=== PATIENT | male | born 1995 ===

== ENCOUNTER 2018-04-20 23:16 | Emergency (ER) | payer SELFPAY ==
--- NOTE | 2018-04-20 23:22 | EDM.PDOC ---
ED HPI GENERAL MEDICAL PROBLEM - General Chief Complaint: Upper Extremity Injury/Pain Stated Complaint: BIG CUT ON HAND Time Seen by Provider: 04/20/18 23:22 Source of Information: Reports: Patient History Limitations: Reports: No Limitations - History of Present Illness INITIAL COMMENTS - FREE TEXT/NARRATIVE: HISTORY AND PHYSICAL: History of present illness: 23-year-old male presenting to emergency department with chief complaint of right hand pain after trauma. Patient states that approximately 10 minutes ago he punched a wall and then proceeded to punch a TV. He did break the TV screen and had significant pain and damage to his right hand. There is a laceration and he believes bone sticking out of the ulnar dorsal aspect of his right hand. Currently having 0 pain. States that he has not lost any sensation but has not tried to bend the finger secondary to bone protrusion. On exam there is a laceration at the medial fifth metacarpal on the dorsal aspect of the hand with visible bone protrusion. Laceration is approximately 1.5 x 0.2cm horizontal. Review of systems: As per history of present illness and below otherwise all systems reviewed and negative. Past medical history: As per history of present illness and as reviewed below otherwise noncontributory. Surgical history: As per history of present illness and as reviewed below otherwise noncontributory. Social history: No reported history of drug or alcohol abuse. Family history: As per history of present illness and as reviewed below otherwise noncontributory. Physical exam: HEENT: Atraumatic, normocephalic, pupils reactive, negative for conjunctival pallor or scleral icterus, mucous membranes moist, throat clear, neck supple, nontender, trachea midline. Lungs: Clear to auscultation, breath sounds equal bilaterally, chest nontender. Heart: S1S2, regular, negative for clicks, rubs, or JVD. Abdomen: Soft, nondistended, nontender. Negative for masses or hepatosplenomegaly. Negative for costovertebral tenderness. Pelvis: Stable nontender. Genitourinary: Deferred. Rectal: Deferred. Extremities: Atraumatic, negative for cords or calf pain. Neurovascular unremarkable. Neuro: Awake, alert, oriented. Cranial nerves II through XII unremarkable. Cerebellum unremarkable. Motor and sensory unremarkable throughout. Exam nonfocal. Diagnostics: Right hand x-ray Therapeutics: DTaP, 1% lidocaine, Ethilon suture Impression: Right hand pain Open fracture Plan: Using approximately 3 mL of lidocaine area of interest was anesthetized successfully. After wound exploration and cleaning I was able to close the 1.5 x 0.2 cm laceration using 2 vertical mattress sutures. Patient tolerated procedure well. There were no complications. Patient also received a DTaP as he did not remember his last tetanus. Patient was discharged in good condition with instructions to keep area clean and dry. He should return to emergency department in 7-10 days for suture removal. He'll also follow-up with his primary care provider if he wishes. Definitive disposition and diagnosis as appropriate pending reevaluation and review of above. - Related Data Allergies Allergy/AdvReac Type Severity Reaction Status Date / Time No Known Allergies Allergy Verified 04/20/18 23:22 Home Meds: Home Meds . [No Known Home Meds] 04/20/18 [History] Review of Systems - Review of Systems Review Of Systems: ROS reveals no pertinent complaints other than HPI. ED EXAM, GENERAL - Physical Exam Exam: See Below Course - Vital Signs Last Recorded V/S: Last Vital Signs Temp Pulse 72 04/20/18 23:27 Resp 14 04/20/18 23:27 BP 121/58 L 04/20/18 23:27 Pulse Ox 98 04/20/18 23:27 - Orders/Labs/Meds Orders: Active Orders 24 hr Category Date Time Status Vaccines to be Administered [RC] PER UNIT ROUTINE Care 04/20/18 23:24 Active Hand Comp Min 3V Rt [CR] Stat Exams 04/20/18 23:21 Taken Meds: Medications Discontinued Medications Generic Name Dose Route Start Last Admin Trade Name Yahaira PRN Reason Stop Dose Admin Diphtheria/Tetanus/Acell Pertussis 0.5 ml 04/20/18 23:24 04/20/18 23:32 Adacel IM 04/20/18 23:25 0.5 ml .ONCE ONE Administration Lidocaine HCl 5 ml 04/20/18 23:24 04/20/18 23:33 Xylocaine-Mpf 1% INJECT 04/20/18 23:25 5 ml ONETIME ONE Administration Departure - Departure Time of Disposition: 00:13 Disposition: Home, Self-Care 01 Condition: Good Clinical Impression: Laceration of hand Qualifiers: Encounter type: initial encounter Foreign body presence: without foreign body Laterality: right Qualified Code(s): S61.411A - Laceration without foreign body of right hand, initial encounter - Discharge Information Forms: ED Department Discharge Additional Instructions: My general discharge The following information is given to patients seen in the emergency department who are being discharged to home. This information is to outline your options for follow-up care. We provide all patients seen in our emergency department with a follow-up referral. The need for follow-up, as well as the timing and circumstances, are variable depending upon the specifics of your emergency department visit. If you don't have a primary care physician on staff, we will provide you with a referral. We always advise you to contact your personal physician following an emergency department visit to inform them of the circumstance of the visit and for follow-up with them and/or the need for any referrals to a consulting specialist. The emergency department will also refer you to a specialist when appropriate. This referral assures that you have the opportunity for follow-up care with a specialist. All of these measure are taken in an effort to provide you with optimal care, which includes your follow-up. Under all circumstances we always encourage you to contact your private physician who remains a resource for coordinating your care. When calling for follow-up care, please make the office aware that this follow-up is from your recent emergency room visit. If for any reason you are refused follow-up, please contact the [facility] Emergency Department at and asked to speak to the emergency department charge nurse. [facility] [address] [place] [phone] May call number above to follow-up with a primary care provider. Be sure to tell them you were seen in the emergency department and they wish for you to be seen as soon as possible. Keep area clean and dry. Watch for signs of infection including but not limited to increased pain, swelling, redness, and drainage. Follow-up in 7-10 days for suture removal. Return to emergency department if any new or worsening symptoms. - My Orders Last 24 Hours: My Active Orders 04/20/18 23:21 Hand Comp Min 3V Rt [CR] Stat 04/20/18 23:24 Vaccines to be Administered [RC] PER UNIT ROUTINE - Assessment/Plan Last 24 Hours: My Active Orders 04/20/18 23:21 Hand Comp Min 3V Rt [CR] Stat 04/20/18 23:24 Vaccines to be Administered [RC] PER UNIT ROUTINE
[2018-04-20] MEDS ORDERED: Diphtheria,Pertussis(Acell),Tetanus Vaccine 0.5 ML Syringe IM ONE (23:24)
[2018-04-21] MEDS ORDERED: Bacitracin Oint 1 GM U/D Packet TOP ONE (00:12)
--- NOTE | 2018-04-21 11:23 | CR ---
EXAM DATE: 04/20/18 PATIENT'S AGE: 23 Patient: YOLY GATES Facility: [place], [place] Site . Site : 1995 Study: XRay Extremity Right [id number]/2/2018 11:32:24 PM Ordering Physician: Doctor Miller Final Report: INDICATION: Pain after punching a TV. COMPARISON: None available. TECHNIQUE: The right hand is examined with PA, lateral, and oblique views. FINDINGS: There is no sign of fracture or dislocation. The soft tissues are normal in appearance without sign of radio-opaque foreign body. No significant degenerative disease is seen. IMPRESSION: NORMAL RIGHT HAND. Dictated by Wilian Lua MD @ Apr 20 2018 11:33PM (Electronic Signature) Report Signed by Proxy. CUONG
== END 2018-04-21 00:25 | disposition home or self-care (01) ==
LOC: MW.ED 23:16
DX: S62.91XB Unspecified fracture of right hand, initial encounter for open fracture (principal); W22.01XA Walked into wall, initial encounter; Z23 Encounter for immunization
CPT/HCPCS: 73130-26-RT; 73130-RT; 90471; 90715; 99283-25